=== PATIENT | female | born 1980 | race Caucasian/White ===

== ENCOUNTER 2016-10-25 06:47 | Emergency (ER) | payer OTHER ==
[~2016-10-25] VITALS: Ht 160 cm; Wt 81.5 kg
[~2016-10-25 06:47] MED LIST: ALPR.5 PO; AMLO2.5T PO; CYCL1TAB29 PO; LEVO25TA4 PO; OMEP20TA PO; PERC5TAB12 PO; PROZ20CA11 PO; SPIR50TA PO
[2016-10-25 06:54] VITALS: BP_SYST 148; BP_SYST 150; BP_DIAS 108; BP_DIAS 110; PULSE 112; RESP 16; TEMP 98; O2SAT 97
[2016-10-25] MEDS ORDERED: SODIUM CHLOR 0.9% 1000 ML INJ 1,000 ML IV ONE (07:05)
[2016-10-25] MEDS ORDERED: KETOROLAC TROMETHAMINE 30 MG/ML (IVP) VIAL IVP ONE (07:15)
[2016-10-25] MEDS ORDERED: SODIUM CHLORIDE 0.9% FLUSH 5 ML FLUSH IVF PRN (07:15)
[2016-10-25] MEDS ORDERED: diphenhydrAMINE HCL 50 MG/ML VIAL IVP ONE (07:15)
[2016-10-25] MEDS ORDERED: PROCHLORPERAZINE INJ 10 MG/2 ML VIAL IVP ONE (07:15)
[2016-10-25 07:25] VITALS: BP 141/95; PULSE 108; RESP 18; O2SAT 97
[2016-10-25] MEDS ORDERED: LORazepam 2 MG/ML VIAL IV PUSH ONE (07:45)
[2016-10-25 08:13] VITALS: BP 112/64; PULSE 93; RESP 18; O2SAT 96
[2016-10-25 08:14] LABS: ANION GAP 14 MEQ/L (5-15); BETA HCG QUANT LESS THAN 1 MIU/ML (0-5); BICARBONATE 23.7 MEQ/L (21.0-32.0); BLOOD UREA NITROGEN 6 MG/DL (7-18); CHLORIDE 104 MEQ/L (98-107); GLOMERULAR FILTRATION RATE 110 ML/MIN (>89); SODIUM (NA) 142 MEQ/L (136-145)
[2016-10-25 08:15] LABS: POTASSIUM 2.9 MEQ/L (3.5-5.1)
[2016-10-25] MEDS ORDERED: POTASSIUM CHLOR 20 MEQ PREMIX 100 ML IV ONE (08:15)
[2016-10-25] MEDS ORDERED: POTASSIUM CHLORIDE 25 MEQ EFFERVESCENT TAB PO ONE (08:15)
[2016-10-25 08:39] LABS: MAGNESIUM 1.7 MG/DL (1.5-2.5)
[2016-10-25] MEDS ORDERED: POTA-163 PO (08:43)
--- NOTE | 2016-10-25 08:43 | PD ---
HPI Chief Complaint: Headache Time Seen by Provider: 07:03 Travel History International Travel<30 days: No Contact w/Intl Traveler<30days: No Traveled to known affect area: No History of Present Illness HPI So 36-year-old woman who presents to the emergency department complaining of headache that woke her from sleep around 4:30 AM this morning. Right sided headache associated with nausea and vomiting. She also has photophobia. Feels similar to previous headaches that she's had. She been diagnosed with migraines in the recent past and states this is similar to her previous headaches. She also had an episode of unusual shaking and tremor that she associates when her potassium is low. Denies hyperventilating at the time. She otherwise has been feeling generally well and healthy. Denies any other new or worsening symptoms. History Past Medical History Narrative Medical Hypertension Anxiety Migraines Hypothyroidism Influenza Vaccination: No LMP: now Dilation and Curettage (D&C): Yes Social History Alcohol Use: Yes (several mixed drinks/week) Tobacco Use: No Allergies-Medications (Allergen,Severity, Reaction): Coded Allergies: Nonsteroidal Anti-Inflammatory Agts (Verified Adverse Reaction, Intermediate, RIGHT BACK PAIN, 10/25/16) Reported Meds & Prescriptions Reported Meds & Active Scripts Active Reported Levothyroxine (Levothyroxine Sodium) 25 Mcg Tab 25 Mcg PO DAILY Amlodipine (Amlodipine Besylate) 2.5 Mg Tab 2.5 Mg PO DAILY Prozac (Fluoxetine HCl) 20 Mg Cap 20 Mg PO HS Xanax (Alprazolam) 0.5 Mg Tab 0.5 Mg PO Q8H PRN Spironolactone 50 Mg Tab 50 Mg PO DAILY Omeprazole 20 Mg Tab 20 Mg PO DAILY Review of Systems Except as stated in HPI: all other systems reviewed are Neg Physical Exam Narrative GENERAL: Generally well-appearing 36 year-old woman, photophobia, keeps her eyes covered, appears a little bit uncomfortable. SKIN: Warm and dry. HEAD: Atraumatic. Normocephalic. NECK: No meningismus. CARDIOVASCULAR: Warm and well perfused. RESPIRATORY: Normal rate and effort. GASTROINTESTINAL: Abdomen soft, non-tender, nondistended. MUSCULOSKELETAL: No obvious deformities. NEUROLOGICAL: Awake and alert. No obvious cranial nerve deficits. Motor grossly within normal limits. Normal speech. Data Data Last Documented VS Vital Signs Date Time Temp Pulse Resp B/P Pulse Ox O2 Delivery O2 Flow Rate FiO2 10/25/16 08:13 93 10/25/16 08:13 18 112/64 96 Room Air 10/25/16 06:54 98.0 Orders Beta Hcg (Quant/Titer) (10/25/16 07:05) Ecg Monitoring (10/25/16 07:05) Iv Access Insert/Monitor (10/25/16 07:05) Oximetry (10/25/16 07:05) Sodium Chloride 0.9% Flush (Ns Flush) (10/25/16 07:15) Ketorolac Inj (Toradol Inj) (10/25/16 07:15) Prochlorperazine Inj (Compazine Inj) (10/25/16 07:15) Diphenhydramine Inj (Benadryl Inj) (10/25/16 07:15) Sodium Chlor 0.9% 1000 Ml Inj (Ns 1000 M (10/25/16 07:05) Basic Metabolic Panel (Bmp) (10/25/16 07:15) Lorazepam Inj (Ativan Inj) (10/25/16 07:45) Potassium Chloride Eff (K-Lyte Cl Eff) (10/25/16 08:15) Potassium Chlor 20 Meq Premix (Kcl 20 Me (10/25/16 08:15) Electrocardiogram (10/25/16 ) Magnesium (Mg) (10/25/16 07:15) Labs Laboratory Tests Test 10/25/16 07:15 Sodium Level 142 MEQ/L Potassium Level 2.9 MEQ/L Chloride Level 104 MEQ/L Carbon Dioxide Level 23.7 MEQ/L Anion Gap 14 MEQ/L Blood Urea Nitrogen 6 MG/DL Creatinine 0.61 MG/DL Estimat Glomerular Filtration 110 ML/MIN Rate Random Glucose 112 MG/DL Calcium Level 8.1 MG/DL Human Chorionic Gonadotropin, LESS THAN 1 Quant MIU/ML MDM Medical Decision Making Medical Screen Exam Complete: Yes Emergency Medical Condition: Yes Interpretation(s) My review of EKG: Normal sinus rhythm a rate of 95, normal axis, QTC 449, no acute ischemia. LABS: BMP remarkable for potassium of 2.9 Magnesium 1.7 HCG negative Differential Diagnosis Migraine, hypokalemia, anxiety, other Narrative Course Medical decision making 36-year-old woman presents with migraine. Treated with migraine cocktail with complete resolution of symptoms. She also states she had some tremulousness in his had hypokalemia in the past. Potassium was low at 2.9. Magnesium 1.7. She is on spironolactone but no potassium supplementation. We'll give her some potassium here, and we'll put her on 5 days of by mouth potassium and recheck with her primary physician. Diagnosis Primary Impression: Migraine headache Qualified Code: G43.009 - Migraine without aura and without status migrainosus , not intractable Additional Impression: Hypokalemia Additional Instructions: Follow-up with your primary doctor in the next one to 2 days. Take potassium as prescribed. Return to the emergency department for any new or worsening symptoms. Med/Other Pt SpecificInfo: Prescription(s) given Scripts Potassium Chloride ER 20 Meq Tab20 Meq PO BID 5 Days Ref 0 Prov:Fermin Hines MD 10/25/16 Disposition: 01 DISCHARGE HOME Condition: Stable Fermin Hines MD Oct 25, 2016 08:43
[2016-10-25 10:03] VITALS: BP 136/94; PULSE 100; RESP 16; O2SAT 97
[2016-10-25 11:32] VITALS: BP 122/84
--- NOTE | 2016-10-26 13:33 | EKG ---
Date Performed: 10/25/2016 Time Performed: 08:22:32 PTAGE: 36 years EKG: Sinus rhythm Anteroseptal T wave changes are borderline abnormal Borderline ECG NO PREVIOUS TRACING DOCTOR: Dary Hughes Interpretating Date/Time 10/26/2016 13:32:41
== END 2016-10-25 11:39 | disposition home or self-care (01) ==
LOC: PHED 06:47
DX: G43.009 Migraine without aura, not intractable, without status migrainosus (principal); E87.6 Hypokalemia; I10 Essential (primary) hypertension; E03.9 Hypothyroidism, unspecified
CPT/HCPCS: 80048; 83735; 84702; 93005; 96361; 96365; 96366; 96375; 99284; J0780; J1200; J1885; J2060; J3480; J7030

== ENCOUNTER 2017-03-22 23:07 | Emergency (ER) | payer OTHER ==
[~2017-03-22] VITALS: Ht 165.1 cm; Wt 82.0 kg
[~2017-03-22 23:07] MED LIST changes: -CYCL1TAB29 PO; -PERC5TAB12 PO; +POTA-163 PO
[2017-03-22 23:12] VITALS: BP 170/117; PULSE 115; TEMP 98.3; O2SAT 94
--- NOTE | 2017-03-23 01:01 | PD ---
HPI Chief Complaint: Psychiatric Symptoms Time Seen by Provider: 00:57 Travel History International Travel<30 days: No Contact w/Intl Traveler<30days: No Traveled to known affect area: No History of Present Illness HPI 36-year-old white female presents to emergency department on a voluntary basis to come in by family members for evaluation of suicidal ideation. Patient states that she's had a history of depression and anxiety in the past. She just got fired from her job last Saturday. 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 She states that she got fired in the process. This has made her feel more depressed. They just moved to a new home this month. Patient also states that her mother from suicide in the past and her anniversary of her passing is coming up. All these things have compounded together making her feel increasingly depressed and having suicidal thoughts. She has no current plan. She denies any toxic ingestions. She does admit to alcohol. No tobacco or drugs. Denies PFSH Past Medical History Narrative Medical Anxiety, depression, GERD, hypertension, hypokalemia, hypothyroidism, migraines , shingles Hx Anticoagulant Therapy: No Anxiety: Yes Cardiovascular Problems: Yes (htn) Diabetes: No Diminished Hearing: No GERD: Yes Genitourinary: Yes ("RIGHT ADRENAL GLAND BLOCKAGE") Hypertension: Yes Immunizations Current: No Migraines: Yes Shingles: Yes Thyroid Disease: Yes Tetanus Vaccination: < 5 Years ?: Not LMP: 3 weeks ago Dilation and Curettage (D&C): Yes Tubal Ligation: Yes Past Surgical History Narrative Surgical Cholecystectomy, appendectomy, Appendectomy: Yes Section: Yes (x3) Cholecystectomy: Yes Other Surgery: Yes Social History Alcohol Use: Yes (several mixed drinks/week) Tobacco Use: No Substance Use: No Allergies-Medications (Allergen,Severity, Reaction): Coded Allergies: Nonsteroidal Anti-Inflammatory Agts (Verified Adverse Reaction, Intermediate, RIGHT BACK PAIN, 10/25/16) Reported Meds & Prescriptions Reported Meds & Active Scripts Active Potassium Chloride ER (Potassium Chloride) 20 Meq Tab 20 Meq PO BID 5 Days Reported Levothyroxine (Levothyroxine Sodium) 25 Mcg Tab 25 Mcg PO DAILY Amlodipine (Amlodipine Besylate) 2.5 Mg Tab 2.5 Mg PO DAILY Prozac (Fluoxetine HCl) 20 Mg Cap 20 Mg PO HS Xanax (Alprazolam) 0.5 Mg Tab 0.5 Mg PO Q8H PRN Spironolactone 50 Mg Tab 50 Mg PO DAILY Omeprazole 20 Mg Tab 20 Mg PO DAILY Review of Systems Except as stated in HPI: all other systems reviewed are Neg Gastrointestinal: Positive: Nausea Psychiatric: Positive: Anxiety, Depression, Suicidal Ideations, Mood Disorder, No: Disorder of Thought, Substance Abuse, Homicidal Ideation Physical Exam Narrative GENERAL: Well-nourished, well-developed patient. SKIN: Warm and dry. HEAD: Normocephalic and atraumatic. EYES: No scleral icterus. No injection or drainage. ENT: No nasal drainage noted. Mucous membranes pink. Airway patent. NECK: Supple, trachea midline. Moves head freely without obvious discomfort. CARDIOVASCULAR: Regular rate and rhythm without murmurs, gallops, or rubs. RESPIRATORY: Breath sounds equal bilaterally. No accessory muscle use. GASTROINTESTINAL: Abdomen soft, non-tender, nondistended. EXTREMITIES: No cyanosis or edema. BACK: Nontender without obvious deformity. No CVA tenderness. NEURO: Patient is alert and oriented. no sensorimotor deficits. Nonfocal. Normal speech. PSYCH: No delusions. No auditory or visual hallucinations. Data Data Last Documented VS Vital Signs Date Time Temp Pulse Resp B/P Pulse Ox O2 Delivery O2 Flow Rate FiO2 03/22/17 23:12 98.3 115 170/117 94 Orders Complete Blood Count With Diff (03/23/17 00:56) Comprehensive Metabolic Panel (03/23/17 00:56) Ed Urine Pregnancytest Poc (03/23/17 00:56) Psych Screen (03/23/17 00:56) Drug Screen, Random Urine (03/23/17 00:56) Alcohol (Ethanol) (03/23/17 00:56) Salicylates (Aspirin) (03/23/17 00:56) Tylenol (Acetaminophen) (03/23/17 00:56) Labs Laboratory Tests Test 03/23/17 01:00 White Blood Count 7.2 TH/MM3 Red Blood Count 4.04 MIL/MM3 Hemoglobin 14.4 GM/DL Hematocrit 41.2 % Mean Corpuscular Volume 101.9 FL Mean Corpuscular Hemoglobin 35.6 PG Mean Corpuscular Hemoglobin 34.9 % Concent Red Cell Distribution Width 12.7 % Platelet Count 193 TH/MM3 Mean Platelet Volume 8.5 FL Neutrophils (%) (Auto) 52.2 % Lymphocytes (%) (Auto) 40.1 % Monocytes (%) (Auto) 6.2 % Eosinophils (%) (Auto) 1.3 % Basophils (%) (Auto) 0.2 % Neutrophils # (Auto) 3.8 TH/MM3 Lymphocytes # (Auto) 2.9 TH/MM3 Monocytes # (Auto) 0.4 TH/MM3 Eosinophils # (Auto) 0.1 TH/MM3 Basophils # (Auto) 0.0 TH/MM3 CBC Comment DIFF FINAL Differential Comment Sodium Level 141 MEQ/L Potassium Level 3.0 MEQ/L Chloride Level 103 MEQ/L Carbon Dioxide Level 29.5 MEQ/L Anion Gap 9 MEQ/L Blood Urea Nitrogen 6 MG/DL Creatinine 0.63 MG/DL Estimat Glomerular Filtration 106 ML/MIN Rate Random Glucose 89 MG/DL Calcium Level 8.9 MG/DL Total Bilirubin 0.5 MG/DL Aspartate Amino Transf 84 U/L (AST/SGOT) Alanine Aminotransferase 139 U/L (ALT/SGPT) Alkaline Phosphatase 102 U/L Total Protein 8.4 GM/DL Albumin 3.8 GM/DL Salicylates Level LESS THAN 1.7 MG/DL Urine Opiates Screen NEG Acetaminophen Level LESS THAN 2.0 MCG/ML Urine Barbiturates Screen NEG Urine Amphetamines Screen NEG Urine Benzodiazepines Screen POS Urine Cocaine Screen NEG Urine Cannabinoids Screen NEG Ethyl Alcohol Level 189 MG/DL MDM Medical Decision Making Medical Screen Exam Complete: Yes Emergency Medical Condition: Yes Medical Record Reviewed: Yes Interpretation(s) Laboratory Tests Test 03/23/17 01:00 White Blood Count 7.2 TH/MM3 Red Blood Count 4.04 MIL/MM3 Hemoglobin 14.4 GM/DL Hematocrit 41.2 % Mean Corpuscular Volume 101.9 FL Mean Corpuscular Hemoglobin 35.6 PG Mean Corpuscular Hemoglobin 34.9 % Concent Red Cell Distribution Width 12.7 % Platelet Count 193 TH/MM3 Mean Platelet Volume 8.5 FL Neutrophils (%) (Auto) 52.2 % Lymphocytes (%) (Auto) 40.1 % Monocytes (%) (Auto) 6.2 % Eosinophils (%) (Auto) 1.3 % Basophils (%) (Auto) 0.2 % Neutrophils # (Auto) 3.8 TH/MM3 Lymphocytes # (Auto) 2.9 TH/MM3 Monocytes # (Auto) 0.4 TH/MM3 Eosinophils # (Auto) 0.1 TH/MM3 Basophils # (Auto) 0.0 TH/MM3 CBC Comment DIFF FINAL Differential Comment Sodium Level 141 MEQ/L Potassium Level 3.0 MEQ/L Chloride Level 103 MEQ/L Carbon Dioxide Level 29.5 MEQ/L Anion Gap 9 MEQ/L Blood Urea Nitrogen 6 MG/DL Creatinine 0.63 MG/DL Estimat Glomerular Filtration 106 ML/MIN Rate Random Glucose 89 MG/DL Calcium Level 8.9 MG/DL Total Bilirubin 0.5 MG/DL Aspartate Amino Transf 84 U/L (AST/SGOT) Alanine Aminotransferase 139 U/L (ALT/SGPT) Alkaline Phosphatase 102 U/L Total Protein 8.4 GM/DL Albumin 3.8 GM/DL Salicylates Level LESS THAN 1.7 MG/DL Urine Opiates Screen NEG Acetaminophen Level LESS THAN 2.0 MCG/ML Urine Barbiturates Screen NEG Urine Amphetamines Screen NEG Urine Benzodiazepines Screen POS Urine Cocaine Screen NEG Urine Cannabinoids Screen NEG Ethyl Alcohol Level 189 MG/DL Differential Diagnosis MDM: High Differential diagnoses: Schizophrenia, schizoaffective disorder, bipolar, anxiety, depression, adjustment reaction, mood disorder NOS, ODD, depressive disorder NOS, dementia, dementia with agitation, psychosis NOS, substance induced mood disorder, intermittent explosive disorder, Asperger syndrome, infection,electrolyte abnormality, malingering. Narrative Course Mental health screening discussed with the patient. Psychiatric screen ordered. The patient is been medically cleared. Patient's potassium is 3.0. She is given 40 mEq by mouth. This is medical clearance for psychiatric admission, depression with suicidal ideation Diagnosis Primary Impression: Medical clearance for psychiatric admission Additional Impressions: Depression with suicidal ideation Hypokalemia Condition: Stable Enoc Castro Mar 23, 2017 01:01 Enoc Castro Mar 23, 2017 01:01
[2017-03-23 01:37] LABS: AUTOMATED NEUTROPHIL # 3.8 TH/MM3 (1.8-7.7); BASOPHIL % 0.2 % (0.0-2.0); EOSINOPHIL # 0.1 TH/MM3 (0-0.4); EOSINOPHIL % 1.3 % (0.0-4.0); HEMATOCRIT 41.2 % (35.0-46.0); HEMO FLAGS DIFF FINAL; LYMPH % 40.1 % (9.0-44.0); LYMPHOCYTE # 2.9 TH/MM3 (1.0-4.8); MEAN CELL VOLUME 101.9 FL (80.0-100.0); MEAN CORPUSCULAR HEMOGLOBIN 35.6 PG (27.0-34.0); MEAN CORPUSCULAR HGB CONC 34.9 % (32.0-36.0); MONO % 6.2 % (0.0-8.0); NEUT % 52.2 % (16.0-70.0); PLATELET COUNT 193 TH/MM3 (150-450); RED BLOOD COUNT 4.04 MIL/MM3 (4.00-5.30); RED CELL DISTRIBUTION WIDTH 12.7 % (11.6-17.2); WHITE BLOOD COUNT 7.2 TH/MM3 (4.0-11.0)
[2017-03-23 01:43] LABS: AMPHETAMINE, URINE NEG (NEG); BARBITURATES, URINE NEG (NEG); COCAINE, URINE NEG (NEG)
[2017-03-23 01:56] LABS: ACETAMINOPHEN LESS THAN 2.0 MCG/ML (10.0-30.0); ALT (GPT) 139 U/L (10-53); ANION GAP 9 MEQ/L (5-15); AST (GOT) 84 U/L (15-37); BICARBONATE 29.5 MEQ/L (21.0-32.0); BLOOD UREA NITROGEN 6 MG/DL (7-18); CHLORIDE 103 MEQ/L (98-107); GLOMERULAR FILTRATION RATE 106 ML/MIN (>89); SODIUM (NA) 141 MEQ/L (136-145)
[2017-03-23 01:57] LABS: ALKALINE PHOSPHATASE 102 U/L (45-117); TOTAL BILIRUBIN ADULT 0.5 MG/DL (0.2-1.0)
[2017-03-23] MEDS ORDERED: POTASSIUM CHLORIDE 20 MEQ CONTROLLED RELEASE TAB PO ONE (02:45)
[2017-03-23] MEDS ORDERED: BUPR150XL PO (11:13)
[2017-03-23] MEDS ORDERED: LORA-474 PO (11:14)
[2017-03-23] MEDS ORDERED: SERO100T PO (11:14)
== END 2017-03-23 11:26 | disposition home or self-care (01) ==
LOC: NEPD 23:07
DX: F32.9 Major depressive disorder, single episode, unspecified (principal); R45.851 Suicidal ideations; E87.6 Hypokalemia; F41.9 Anxiety disorder, unspecified; I10 Essential (primary) hypertension; K21.9 Gastro-esophageal reflux disease without esophagitis; E07.9 Disorder of thyroid, unspecified; Z79.899 Other long term (current) drug therapy
CPT/HCPCS: 80053; 80307; 84703; 85025; 99284

== ENCOUNTER 2017-07-30 18:00 | Emergency (ER) | payer BC, OTHER ==
[~2017-07-30 18:00] MED LIST changes: +BUPR150XL PO; +LORA-474 PO; -OMEP20TA PO; +OMEP20TA93 PO; +SERO100T PO
[2017-07-30 18:02] VITALS: BP 159/95; PULSE 108; RESP 18; TEMP 98.4; O2SAT 99
[2017-07-30] MEDS ORDERED: SODIUM CHLOR 0.9% 1000 ML INJ 1,000 ML IV SCH (18:42)
[2017-07-30] MEDS ORDERED: ONDANSETRON HCL 4 MG/2 ML VIAL IV PUSH ONE (18:45)
[2017-07-30] MEDS ORDERED: ACETAMINOPHEN 325 MG TAB PO ONE (18:45)
--- NOTE | 2017-07-30 18:45 | PD ---
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 She has had right flank pain since yesterday. She reports that it feels like a kidney infection. She has had in the past. Symptoms are mild, no aggravating or alleviating factors. She denies nausea, vomiting, diarrhea, constipation, fevers, chills, dysuria, hematuria or vaginal bleeding, vaginal discharge. PFSH Past Medical History Hx Anticoagulant Therapy: No Anxiety: Yes Depression: Yes Cardiovascular Problems: Yes (HTN) Diabetes: No Diminished Hearing: No GERD: Yes Genitourinary: Yes ("RIGHT ADRENAL GLAND BLOCKAGE") Headaches: Yes Herniated Disk: Yes Hypertension: Yes Insomnia: Yes Kidney Stones: Yes Psychiatric: Yes Immunizations Current: No Migraines: Yes Shingles: Yes Sleep Apnea: Yes Thyroid Disease: Yes Ulcer: Yes Ovarian Cysts: Yes Dilation and Curettage (D&C): No Tubal Ligation: Yes Past Surgical History Appendectomy: Yes Section: Yes (x3) Cholecystectomy: Yes Gynecologic Surgery: Yes Other Surgery: Yes Social History Alcohol Use: Yes (several mixed drinks/week) Tobacco Use: No Substance Use: Yes (ALCOHOL ) Allergies-Medications (Allergen,Severity, Reaction): Coded Allergies: diclofenac (Unverified Adverse Reaction, Intermediate, RIGHT BACK PAIN, ) etodolac (Unverified Adverse Reaction, Intermediate, RIGHT BACK PAIN, 05/07) flurbiprofen (Unverified Adverse Reaction, Intermediate, RIGHT BACK PAIN, 05/07/17) ibuprofen (Unverified Adverse Reaction, Intermediate, RIGHT BACK PAIN, ) indomethacin (Unverified Adverse Reaction, Intermediate, RIGHT BACK PAIN, 05/07/17) ketoprofen (Unverified Adverse Reaction, Intermediate, RIGHT BACK PAIN, ) ketorolac (Unverified Adverse Reaction, Intermediate, RIGHT BACK PAIN, ) naproxen (Unverified Adverse Reaction, Intermediate, RIGHT BACK PAIN, 05/07) oxaprozin (Unverified Adverse Reaction, Intermediate, RIGHT BACK PAIN, ) Reported Meds & Prescriptions Reported Meds & Active Scripts Active Macrobid (Nitrofurantoin Monohydrate Macrocrystals) 100 Mg Capsule 100 Mg PO BID 7 Days Seroquel (Quetiapine Fumarate) 100 Mg Tab 100 Mg PO 1-2 HS Ativan (Lorazepam) 1 Mg Tab 1 Mg PO Q6H PRN Wellbutrin Xl 24 HR (Bupropion HCl) 150 Mg Tab 150 Mg PO DAILY Potassium Chloride ER (Potassium Chloride) 20 Meq Tab 20 Meq PO BID 5 Days Reported Levothyroxine (Levothyroxine Sodium) 25 Mcg Tab 25 Mcg PO DAILY Amlodipine (Amlodipine Besylate) 2.5 Mg Tab 2.5 Mg PO DAILY Prozac (Fluoxetine HCl) 20 Mg Cap 20 Mg PO HS Xanax (Alprazolam) 0.5 Mg Tab 0.5 Mg PO Q8H PRN Spironolactone 50 Mg Tab 50 Mg PO DAILY Omeprazole 20 Mg Tab 20 Mg PO DAILY Review of Systems Except as stated in HPI: all other systems reviewed are Neg Physical Exam Narrative GENERAL: Well-nourished female in no acute distress SKIN: Warm and dry. HEAD: Atraumatic. Normocephalic. EYES: Pupils equal and round. No scleral icterus. No injection or drainage. ENT: No nasal bleeding or discharge. Mucous membranes pink and moist. NECK: Trachea midline. No JVD. CARDIOVASCULAR: Regular rate and rhythm. No murmur appreciated. RESPIRATORY: No accessory muscle use. Clear to auscultation. Breath sounds equal bilaterally. GASTROINTESTINAL: Abdomen soft, non-tender, nondistended. Hepatic and splenic margins not palpable. Mild right CVA tenderness is present. Mild suprapubic tenderness is present. MUSCULOSKELETAL: No obvious deformities. No clubbing. No cyanosis. No edema. NEUROLOGICAL: Awake and alert. No obvious cranial nerve deficits. Motor grossly within normal limits. Normal speech. PSYCHIATRIC: Appropriate mood and affect; insight and judgment normal. Data Data Last Documented VS Vital Signs Date Time Temp Pulse Resp B/P (MAP) Pulse Ox O2 Delivery O2 Flow Rate FiO2 07/30/17 18:02 98.4 108 18 159/95 (116) 99 Room Air Orders Orders Complete Blood Count With Diff (07/30/17 18:08) Basic Metabolic Panel (Bmp) (07/30/17 18:08) Urinalysis - C+S If Indicated (07/30/17 18:08) Ed Urine Pregnancytest Poc (07/30/17 18:08) Acetaminophen (Tylenol) (07/30/17 18:45) Ondansetron Inj (Zofran Inj) (07/30/17 18:45) Sodium Chlor 0.9% 1000 Ml Inj (Ns 1000 M (07/30/17 18:42) Urine Culture (07/30/17 18:50) Ceftriaxone Inj (Rocephin Inj) (07/30/17 19:45) Ed Discharge Order (07/30/17 20:34) Labs Laboratory Tests Test 07/30/17 18:50 White Blood Count 6.5 TH/MM3 Red Blood Count 4.00 MIL/MM3 Hemoglobin 14.6 GM/DL Hematocrit 41.4 % Mean Corpuscular Volume 103.4 FL Mean Corpuscular Hemoglobin 36.5 PG Mean Corpuscular Hemoglobin Concent 35.3 % Red Cell Distribution Width 12.3 % Platelet Count 169 TH/MM3 Mean Platelet Volume 9.3 FL Neutrophils (%) (Auto) 66.1 % Lymphocytes (%) (Auto) 27.7 % Monocytes (%) (Auto) 5.2 % Eosinophils (%) (Auto) 0.8 % Basophils (%) (Auto) 0.2 % Neutrophils # (Auto) 4.3 TH/MM3 Lymphocytes # (Auto) 1.8 TH/MM3 Monocytes # (Auto) 0.3 TH/MM3 Eosinophils # (Auto) 0.0 TH/MM3 Basophils # (Auto) 0.0 TH/MM3 CBC Comment DIFF FINAL Differential Comment Urine Color YELLOW Urine Turbidity HAZY Urine pH 6.5 Urine Specific Maddock 1.022 Urine Protein TRACE mg/dL Urine Glucose (UA) NEG mg/dL Urine Ketones NEG mg/dL Urine Occult Blood NEG Urine Nitrite POS Urine Bilirubin NEG Urine Urobilinogen LESS THAN 2.0 MG/DL Urine Leukocyte Esterase MOD Urine RBC 1 /hpf Urine WBC 6 /hpf Urine Squamous Epithelial Cells 8 /hpf Urine Bacteria OCC /hpf Urine Mucus FEW /lpf Microscopic Urinalysis Comment CULTURE INDICATED Blood Urea Nitrogen 10 MG/DL Creatinine 0.58 MG/DL Random Glucose 95 MG/DL Calcium Level 9.2 MG/DL Sodium Level 140 MEQ/L Potassium Level 3.5 MEQ/L Chloride Level 103 MEQ/L Carbon Dioxide Level 28.3 MEQ/L Anion Gap 9 MEQ/L Estimat Glomerular Filtration Rate 117 ML/MIN [facility] Medical Decision Making Medical Screen Exam Complete: Yes Emergency Medical Condition: Yes Medical Record Reviewed: Yes Differential Diagnosis Pyelonephritis, renal stone, renal colic Narrative Course Plan is for basic lab work, urinalysis. She will be given IV fluids, Tylenol, Zofran. Urinalysis is consistent with urinary tract infection. She was given Rocephin here. She'll be discharged with Macrobid. Diagnosis Primary Impression: Pyelonephritis Additional Instructions: Medication as prescribed. Stay well hydrated. Return for any emergent medical conditions. Med/Other Pt SpecificInfo: Prescription(s) given Scripts Nitrofurantoin Monohydrate Macrocrystals (Macrobid) 100 Mg Capsule 100 MG PO BID for Infection for 7 Days, #14 CAP 0 Refills Prov: Davis Josue MD 07/30/17 Disposition: 01 DISCHARGE HOME Condition: Stable Mane Little Jul 30, 2017 18:45
[2017-07-30 19:21] LABS: AUTOMATED NEUTROPHIL # 4.3 TH/MM3 (1.8-7.7); BASOPHIL % 0.2 % (0.0-2.0); EOSINOPHIL % 0.8 % (0.0-4.0); HEMATOCRIT 41.4 % (35.0-46.0); HEMO FLAGS DIFF FINAL; LYMPH % 27.7 % (9.0-44.0); LYMPHOCYTE # 1.8 TH/MM3 (1.0-4.8); MEAN CELL VOLUME 103.4 FL (80.0-100.0); MEAN CORPUSCULAR HEMOGLOBIN 36.5 PG (27.0-34.0); MEAN CORPUSCULAR HGB CONC 35.3 % (32.0-36.0); MONO % 5.2 % (0.0-8.0); NEUT % 66.1 % (16.0-70.0); PLATELET COUNT 169 TH/MM3 (150-450); RED CELL DISTRIBUTION WIDTH 12.3 % (11.6-17.2); WHITE BLOOD COUNT 6.5 TH/MM3 (4.0-11.0)
[2017-07-30 19:25] LABS: BACTERIA, URINE OCC /hpf; BLOOD, URINE NEG (NEG); GLUCOSE,URINE NEG (NEG); KETONE, URINE NEG (NEG); MUCUS URINE FEW /lpf (OCC); NITRITE,URINE POS (NEG); PH, URINE 6.5 (5.0-8.5); SQUAMOUS EPITHELIAL CELL URINE 8 /hpf (0-5); URINE COLOR YELLOW (YELLW/STRAW)
[2017-07-30 19:26] LABS: COMMENT (UR) CULTURE INDICATED; CULTURE IF INDICATED CULTURE INDICATED
[2017-07-30 19:39] LABS: BICARBONATE 28.3 MEQ/L (21.0-32.0); POTASSIUM 3.5 MEQ/L (3.5-5.1)
[2017-07-30] MEDS ORDERED: cefTRIAXone INJ 1,000 MG in SODIUM CHLORIDE 0.9% INJ 100 ML IV ONE (19:45)
[2017-07-30] MEDS ORDERED: MACR100C2 PO (20:32)
[2017-07-30 20:39] VITALS: BP 138/89
== END 2017-07-30 20:54 | disposition home or self-care (01) ==
LOC: NEPD 18:00
DX: N10 Acute pyelonephritis (principal); B96.20 Unspecified Escherichia coli [E. coli] as the cause of diseases classified elsewhere; Z87.442 Personal history of urinary calculi; E26.81 Bartter's syndrome; I10 Essential (primary) hypertension; K21.9 Gastro-esophageal reflux disease without esophagitis; F41.9 Anxiety disorder, unspecified; F32.9 Major depressive disorder, single episode, unspecified
CPT/HCPCS: 80048; 81001; 84703; 85025; 87077; 87086; 87186; 96361; 96374; 96375; 99284; J0696; J2405; J7030